=== PATIENT | female | born 1980 | race African-American/Black ===

== ENCOUNTER → 2016-09-07 | Emergency (ER) | payer OTHER ==
[~2016-09-07] VITALS: Ht 152.4 cm; Wt 78.5 kg
[~2016-09-07] MED LIST: ABILIFY10 MG ORAL; ADALAT10 MG ORAL; CIPRO HC OTIC S10 M1 OT; CITALOPRAM HBR40 M1 ORAL; FAMOTIDINE20 MG ORAL; GABAPENTIN100 MG ORAL; HYDROCODON-ACE1 EA15 ORAL; HYDROXYZIN10 MG/5 ML PO; HYDROXYZINE PA100 MG ORAL; HYDROmorphone 1mg/ml Carpuject IVP ONE; LATANOPROST2.5 ML BOTH EYES; LYRICA75 M1 ORAL; MINIPRESS1 MG PO; OMEPRAZOLE20 M2 ORAL; OMEPRAZOLE40 M1 ORAL; PRADAXA150 MG ORAL; TRAZODONE HCL150 MG ORAL; TYLENOL EXTRA500 MG ORAL; ZALEPLON5 MG ORAL; ZOFRAN4 MG ORAL
--- NOTE | 2016-09-07 02:53 | Emergency Room Report ---
History of Present Illness General Chief Complaint: Abdominal Pain Source: Patient Present Illness HPI This is a 36-year-old female with history of migraine. She presents with chief complaint abdominal pain for the last 2 days. She has vomiting but no diarrhea. Pain is crampy and sharp in nature. Localized the left lower quadrant. Also with migraine headache. Pain is 9/10. No focal deficit. No fever or chills. No urinary complaint. Allergies: Coded Allergies: ASPIRIN (Verified Allergy, Unknown, 05/21/09) PENICILLINS (Verified Allergy, Unknown, 05/21/09) Patient History Past Medical History: see triage record, old chart reviewed Past Surgical History: other Pertinent Family History: none Social History: Denies: smoking Last Menstrual Period: AUGUST 17 Now: No Immunizations: other Reviewed Nursing Documentation: PMH: Agreed, PSxH: Agreed Nursing Documentation-PMH Hx Hypertension: Yes Hx Asthma: Yes Review of Systems Eye: Denies: blurred vision, eye pain ENT: Denies: ear pain, nose congestion, throat swelling Respiratory: Denies: cough, shortness of breath Cardiovascular: Denies: chest pain, palpitations Gastrointestinal: Reports: abdominal pain, nausea, vomiting Musculoskeletal: Denies: back pain, joint pain Skin: Denies: rash Neurological: Reports: headache, Denies: numbness Endocrine: Denies: increased thirst, increased urine Hematologic/Lymphatic: Denies: easy bruising All Other Systems: negative except mentioned in HPI Physical Exam Vital Signs Date Time Temp Pulse Resp B/P Pulse Ox O2 Delivery O2 Flow Rate FiO2 09/07/16 02:27 97.9 60 18 145/90 100 Room Air vitals normal Sp02 EP Interpretation: reviewed, normal General Appearance: well appearing, no apparent distress, alert Head: normocephalic, atraumatic Eyes: bilateral eye EOMI, bilateral eye PERRL ENT: hearing grossly normal, normal pharynx Neck: full range of motion, supple, no meningismus Respiratory: chest non-tender, lungs clear, normal breath sounds Cardiovascular #1: regular rate, rhythm, no murmur Gastrointestinal: no mass, no organomegaly, no bruit, non-distended, abnormal bowel sounds - Hyperactive, tenderness - Left lower quadrant Musculoskeletal: back normal, gait/station normal, normal range of motion Psychiatric: mood/affect normal Skin: warm/dry Medical Decision Making Diagnostic Impression: Primary Impression: Abdominal pain Qualified Codes: R10.9 - Unspecified abdominal pain Additional Impression: Headache Qualified Codes: R51 - Headache ER Course Patient with abdominal pain. This turgor headache. She is better now. Asymptomatic. No evidence of acute abdomen. No evidence of obstruction. No evidence of neurological deficit deep or meningitis. We'll discharge home. Lab Results Impression labs normal CT/MRI/US Diagnostic Results CT/MRI/US Diagnostic Results : Imaging Test Ordered: CT abdomen and pelvis Impression negative per radiologist Last Vital Signs Date Time Temp Pulse Resp B/P Pulse Ox O2 Delivery O2 Flow Rate FiO2 09/07/16 02:27 97.9 60 18 145/90 100 Room Air Status: improved Disposition: HOME, SELF-CARE Condition: Stable Scripts Ondansetron (Zofran) 4 Mg Tablet 4 MG ORAL Q6H Y for Nausea & Vomiting, #10 TAB 0 Refills Prov: MAYRA MATIAS M.D. 09/07/16 Hydrocodone/Acetaminophen 5-325* (HYDROCODONE/ACETAMINOPHEN 5-325*) 1 Each Tablet 1 TAB ORAL Q6H Y for For Pain, #15 TAB 0 Refills Prov: MAYRA MATIAS M.D. 09/07/16 Patient Instructions: Abdominal Pain, Adult Additional Instructions: Followup with your DrBen in 2-3 days. Return if symptom worsen. MAYRA MATIAS M.D. Sep 07, 2016 02:53
[2016-09-07 02:56] VITALS: BP 145/90
[2016-09-07 03:17] LABS: APPEARANCE,URINE CLEAR; BASOPHILS % (AUTO) 1.3 % (0.0-2.0); EOSINOPHILS % (AUTO) 4.1 % (0.0-3.0); KETONES,URINE NEGATIVE (NEGATIVE); LEUKOCYTE ESTERASE ,URINE NEGATIVE (NEGATIVE); LYMPHOCYTES % (AUTO) 29.8 % (20.0-45.0); MEAN CORPUSCULAR HEMOGLOBIN 30.4 PG (27.0-31.0); MEAN CORPUSCULAR HGB CONC 33.8 G/DL (32.0-36.0); MEAN CORPUSCULAR VOLUME 90 FL (80-99); MEAN PLATELET VOLUME 6.9 FL (6.5-10.1); MONOCYTES % (AUTO) 7.7 % (1.0-10.0); NEUTROPHILS % (AUTO) 57.1 % (45.0-75.0); NITRITE,URINE NEGATIVE (NEGATIVE); PH,URINE 8 (4.5-8.0); PLATELET COUNT 340 K/UL (150-450); PROTEIN,URINE NEGATIVE (NEGATIVE); RED BLOOD COUNT 4.55 M/UL (4.20-5.40); RED CELL DISTRIBUTION WIDTH 11.5 % (11.6-14.8); UROBILINOGEN,URINE NORMAL MG/DL (0.0-1.0); WHITE BLOOD COUNT 8.6 K/UL (4.8-10.8)
[2016-09-07 03:22] LABS: BACTERIA,URINE FEW /HPF; SQUAMOUS EPITHELIAL CELL,UR FEW /LPF (NONE/OCC); WBC,URINE 0-2 /HPF (0 - 2)
[2016-09-07 03:33] LABS: ALANINE AMINOTRANSFERASE 12 U/L (3-33); ALBUMIN/GLOBULIN RATIO 1.4 (1.0-2.7); ANION GAP 11 (5-15); ASPARTATE AMINO TRANSFERASE 16 U/L (5-40); CALCIUM 9.7 mg/dL (8.6-10.2); CARBON DIOXIDE 28 mEQ/L (20-30); CHLORIDE 99 mEQ/L (98-107); CREATININE 0.6 mg/dL (0.5-0.9); GLOMERULAR FILTRATION RATE > 60 mL/min (>60); HEMOLYSIS 3; LIPASE 15 U/L (< 60); SODIUM 138 mEQ/L (135-145); TOTAL PROTEIN 7.5 g/dL (6.6-8.7)
[2016-09-07 04:23] VITALS: BP 134/83
--- NOTE | 2016-09-07 08:28 | Diagnostic Imaging Report ---
Indications: Abdominal pain Technique: Continuous helical CT imaging of the abdomen and pelvis was performed with automatic exposure control on a Siemens sensation [address] scanner. Axial, coronal, and sagittal images were reconstructed at 3 mm slice thickness. No oral or IV contrast was administered per question physician's orders, despite no contraindications listed. CTDI volume(s): 17 mGy Total DLP: 834 mGy-cm Findings: Comparison: None. Kidneys, ureters, urinary bladder demonstrate no intraparenchymal or intraluminal stones, collecting system or ureteral dilation, perinephric or periureteral stranding. The appendix is unremarkable. The gastrointestinal tract is normal in caliber. No extraluminal gas or fluid collections are demonstrated. Remainder of visualized abdominopelvic anatomy demonstrates no other obvious abnormality, though lack of oral and IV contrast limits evaluation. Small irregular pleural-based linear densities in both lung bases.. No focal skeletal abnormalities demonstrated. IMPRESSION: No evidence of renal or ureteral stone, hydronephrosis or hydroureter. Unremarkable appendix -- no evidence of acute appendicitis. No other evidence of acute abdominopelvic disease. Lack of oral and IV contrast limits evaluation, however, and subtle abnormalities may be missed. Repeat CT scan with full oral and IV contrast preparation recommended for more complete evaluation, as clinically indicated. This correlates with [employer] preliminary report. The CT scanner at [facility] is accredited by the [employer] [employer] and the scans are performed using protocols designed to limit radiation exposure to as low as reasonably achievable to attain images of sufficient resolution adequate for diagnostic evaluation.
== END | disposition home or self-care (01) ==
LOC: EMR 03:05
DX: R10.9 Unspecified abdominal pain (principal); R51 Headache; I10 Essential (primary) hypertension; J45.909 Unspecified asthma, uncomplicated; Z88.0 Allergy status to penicillin; Z88.6 Allergy status to analgesic agent
CPT/HCPCS: 36415; 74176; 80053; 81003; 81025; 83690; 85025; 96374; 96375; 99284; J1170; J2405

== ENCOUNTER 2016-11-23 12:56 | Emergency (ER) | payer OTHER ==
[~2016-11-23] VITALS: Ht 152.4 cm; Wt 80.7 kg
[~2016-11-23 12:56] MED LIST changes: -HYDROmorphone 1mg/ml Carpuject IVP ONE
[2016-11-23 13:09] VITALS: BP 119/67
[2016-11-23] MEDS ORDERED: Ipratropium 0.02% Inh Soln 2.5ml UD HHN ONE (13:30)
[2016-11-23] MEDS ORDERED: Metoclopramide 10mg/2ml Inj IVP ONE (13:30)
[2016-11-23] MEDS ORDERED: DiphenhydrAMINE 50mg/ml Inj IVP ONE (13:30)
[2016-11-23] MEDS ORDERED: Albuterol ud Inhalation HHN ONE (13:30)
[2016-11-23] MEDS ORDERED: Ketorolac 30mg Inj IV ONE (13:30)
[2016-11-23 13:55] LABS: APPEARANCE,URINE CLEAR; BASOPHILS % (AUTO) 1.6 % (0.0-2.0); EOSINOPHILS % (AUTO) 6.6 % (0.0-3.0); KETONES,URINE 1+ (NEGATIVE); LEUKOCYTE ESTERASE ,URINE 1+ (NEGATIVE); LYMPHOCYTES % (AUTO) 27.8 % (20.0-45.0); MEAN CORPUSCULAR HEMOGLOBIN 31.1 PG (27.0-31.0); MEAN CORPUSCULAR HGB CONC 34.3 G/DL (32.0-36.0); MEAN CORPUSCULAR VOLUME 91 FL (80-99); MEAN PLATELET VOLUME 6.8 FL (6.5-10.1); MONOCYTES % (AUTO) 6.5 % (1.0-10.0); NEUTROPHILS % (AUTO) 57.6 % (45.0-75.0); NITRITE,URINE NEGATIVE (NEGATIVE); PH,URINE 5 (4.5-8.0); PLATELET COUNT 344 K/UL (150-450); PROTEIN,URINE NEGATIVE (NEGATIVE); RED BLOOD COUNT 4.33 M/UL (4.20-5.40); RED CELL DISTRIBUTION WIDTH 11.6 % (11.6-14.8); UROBILINOGEN,URINE NORMAL MG/DL (0.0-1.0); WHITE BLOOD COUNT 8.1 K/UL (4.8-10.8)
[2016-11-23 14:07] LABS: BACTERIA,URINE FEW /HPF; SQUAMOUS EPITHELIAL CELL,UR FEW /LPF (NONE/OCC); WBC,URINE 0-2 /HPF (0 - 2)
[2016-11-23 14:41] LABS: ALANINE AMINOTRANSFERASE 20 U/L (12-78); ALBUMIN/GLOBULIN RATIO 1.1 (1.0-2.7); ANION GAP 10 mmol/L (5-15); ASPARTATE AMINO TRANSFERASE 20 U/L (15-37); CALCIUM 9.2 MG/DL (8.5-10.1); CARBON DIOXIDE 27 MMOL/L (21-32); CHLORIDE 104 MMOL/L (98-107); CREATININE 0.9 MG/DL (0.55-1.30); GLOMERULAR FILTRATION RATE > 60 mL/min (>60); POTASSIUM 3.8 MMOL/L (3.5-5.1); SODIUM 141 MMOL/L (136-145); TOTAL PROTEIN 7.2 G/DL (6.4-8.2)
[2016-11-23] MEDS ORDERED: IMITREX50 MG ORAL (14:45)
[2016-11-23 15:10] VITALS: BP 112/67
--- NOTE | 2016-11-24 14:12 | Emergency Room Report ---
History of Present Illness General Chief Complaint: General Complaint Source: Patient, Medical Record Present Illness HPI 36-year-old female presents to ED for evaluation. Patient states yesterday she developed a headache which is getting progressively worse. Across the forehead , throbbing, 8/10, nonradiating. Patient has history of migraines. Denies photophobia or blurry vision. Denies neck stiffness fevers or chills. Patient admits to nausea and vomiting. Denies chest pain. Patient has history of asthma and states she is wheezing. Denies cough. No other aggravating relieving factors. Denies any other associated symptoms Allergies: Coded Allergies: ASPIRIN (Verified Allergy, Unknown, 05/21/09) PENICILLINS (Verified Allergy, Unknown, 05/21/09) Patient History Past Medical History: HTN, migraines Past Surgical History: none Pertinent Family History: none Social History: Denies: smoking, alcohol use, drug use Last Menstrual Period: 11/21/16 Now: No Immunizations: UTD Reviewed Nursing Documentation: PMH: Agreed, PSxH: Agreed Nursing Documentation-PMH Past Medical History: No History, Except For Hx Hypertension: Yes Hx Asthma: Yes Review of Systems All Other Systems: negative except mentioned in HPI Physical Exam Vital Signs Date Time Temp Pulse Resp B/P (MAP) Pulse Ox O2 Delivery O2 Flow Rate FiO2 11/23/16 12:59 97.9 90 18 138/90 97 Room Air 11/23/16 13:35 21 Sp02 EP Interpretation: reviewed, normal General Appearance: no apparent distress, alert, GCS 15, non-toxic Head: normocephalic Eyes: bilateral eye normal inspection, bilateral eye PERRL, bilateral eye EOMI ENT: hearing grossly normal, normal pharynx, no angioedema, normal voice, TMs + canals normal Neck: full range of motion, supple, no meningismus Respiratory: wheezing Cardiovascular #1: regular rate, rhythm, no edema Gastrointestinal: normal inspection Rectal: deferred Genitourinary: no CVA tenderness Musculoskeletal: normal inspection Neurologic: alert, oriented x3, responsive, motor strength/tone normal, sensory intact, speech normal Psychiatric: judgement/insight normal, memory normal, mood/affect normal, no suicidal/homicidal ideation Skin: normal inspection Lymphatic: normal inspection Medical Decision Making Diagnostic Impression: Primary Impression: Migraine Qualified Codes: G43.009 - Migraine without aura, not intractable, without status migrainosus Additional Impression: Asthma exacerbation Qualified Codes: J45.901 - Unspecified asthma with (acute) exacerbation ER Course Hospital Course 36-year-old female presents to ED complaining of headaches, wheezing. h/o migraines Differential diagnoses include: tension headache, migraine, dehydration, asthma exacerbation Clinical course Patient placed on stretcher. After initial history and physical I ordered labs , IV fluids, Reglan, Toradol and Benadryl. nebulizer treatment ordered Labs reviewed- electrolytes okay, no leukocytosis, hemoglobin/hematocrit stable. UA negative Upon reassessment patient states pain has improved. wheezing resolved. Patient feels better wishes to go home. Given the lack of fever, nuchal rigidity or neurological findings my suspicion for intracranial pathology is low patient be safely discharged to home. i. I feel this is a highly complex case requiring extensive working including EKG/Rhythm strip, Xray/CT/US, Blood/urine lab work, repeat exams while in ED, and administration of strong opiates/narcotics for pain control, admission to hospital or close patient follow up. Diagnosis - migraine, asthma exacerbation stable and discharged to home with Rx Imitrex. f/up with PMD. return to ED if symptoms recur/worsen. Labs Test 11/23/16 13:36 White Blood Count 8.1 K/UL (4.8-10.8) Red Blood Count 4.33 M/UL (4.20-5.40) Hemoglobin 13.5 G/DL (12.0-16.0) Hematocrit 39.3 % (37.0-47.0) Mean Corpuscular Volume 91 FL (80-99) Mean Corpuscular Hemoglobin 31.1 PG (27.0-31.0) Mean Corpuscular Hemoglobin Concent 34.3 G/DL (32.0-36.0) Red Cell Distribution Width 11.6 % (11.6-14.8) Platelet Count 344 K/UL (150-450) Mean Platelet Volume 6.8 FL (6.5-10.1) Neutrophils (%) (Auto) 57.6 % (45.0-75.0) Lymphocytes (%) (Auto) 27.8 % (20.0-45.0) Monocytes (%) (Auto) 6.5 % (1.0-10.0) Eosinophils (%) (Auto) 6.6 % (0.0-3.0) Basophils (%) (Auto) 1.6 % (0.0-2.0) Urine Color Yellow Urine Appearance Clear Urine pH 5 (4.5-8.0) Urine Specific [place] 1.020 (1.005-1.035) Urine Protein Negative (NEGATIVE) Urine Glucose (UA) Negative (NEGATIVE) Urine Ketones 1+ (NEGATIVE) Urine Occult Blood 2+ (NEGATIVE) Urine Nitrite Negative (NEGATIVE) Urine Bilirubin Negative (NEGATIVE) Urine Urobilinogen Normal MG/DL (0.0-1.0) Urine Leukocyte Esterase 1+ (NEGATIVE) Urine RBC 2-4 /HPF (0 - 2) Urine WBC 0-2 /HPF (0 - 2) Urine Squamous Epithelial Cells Few /LPF (NONE/OCC) Urine Bacteria Few /HPF (NONE) Sodium Level 141 MMOL/L (136-145) Potassium Level 3.8 MMOL/L (3.5-5.1) Chloride Level 104 MMOL/L (98-107) Carbon Dioxide Level 27 MMOL/L (21-32) Anion Gap 10 mmol/L (5-15) Blood Urea Nitrogen 12 mg/dL (7-18) Creatinine 0.9 MG/DL (0.55-1.30) Estimat Glomerular Filtration Rate > 60 mL/min (>60) Glucose Level 77 MG/DL (74-106) Calcium Level 9.2 MG/DL (8.5-10.1) Total Bilirubin 0.3 MG/DL (0.2-1.0) Aspartate Amino Transf (AST/SGOT) 20 U/L (15-37) Alanine Aminotransferase (ALT/SGPT) 20 U/L (12-78) Alkaline Phosphatase 57 U/L (46-116) Total Protein 7.2 G/DL (6.4-8.2) Albumin 3.8 G/DL (3.4-5.0) Globulin 3.4 g/dL Albumin/Globulin Ratio 1.1 (1.0-2.7) Last Vital Signs Date Time Temp Pulse Resp B/P (MAP) Pulse Ox O2 Delivery O2 Flow Rate FiO2 11/23/16 15:10 98.4 70 21 112/67 100 Room Air 21 Status: improved Disposition: HOME, SELF-CARE Condition: Stable Scripts Sumatriptan Succinate* (IMITREX*) 50 Mg Tablet 50 MG ORAL DAILY PRN MIGRAINE, #20 TAB Prov: GURMEET BUNN M.D. 11/23/16 Referrals: [facility],REFERCHRISTOPHER (PCP) Patient Instructions: Migraine Headache, [id number] GURMEET BUNN M.D. Nov 24, 2016 14:12
[2016-12-06] MEDS ORDERED: NORCO 5-325 TA1 EACH ORAL (23:29)
[2016-12-06] MEDS ORDERED: MAALOX MAXIMUM355 M1 PO (23:29)
[2016-12-06] MEDS ORDERED: ZOFRAN ODT4 MG ORAL (23:29)
[2016-12-06] MEDS ORDERED: ALBUTEROL SULF8.5 GM INH (23:29)
== END 2016-11-23 15:10 | disposition home or self-care (01) ==
LOC: EMR 13:34
DX: G43.909 Migraine, unspecified, not intractable, without status migrainosus (principal); J45.901 Unspecified asthma with (acute) exacerbation; I10 Essential (primary) hypertension; Z88.0 Allergy status to penicillin; Z88.6 Allergy status to analgesic agent
CPT/HCPCS: 36415; 80053; 81003; 85025; 94640; 94664; 96361; 96374; 96375; 99284; J1200; J1885; J2765

== ENCOUNTER → 2016-12-06 | Emergency (ER) | payer OTHER ==
[~2016-12-06] VITALS: Ht 152.4 cm; Wt 74.8 kg
[~2016-12-06] MED LIST changes: +ALBUTEROL SULF8.5 GM INH; +Albuterol ud Inhalation HHN ONE; +IMITREX50 MG ORAL; +Ipratropium 0.02% Inh Soln 2.5ml UD HHN ONE; +MAALOX MAXIMUM355 M1 PO; +Morphine Sulfate 4mg/ml Inj IVP ONE; +NORCO 5-325 TA1 EACH ORAL; +ZOFRAN ODT4 MG ORAL
[2016-12-06 20:29] VITALS: BP 122/76
--- NOTE | 2016-12-06 20:50 | Emergency Room Report ---
History of Present Illness General Chief Complaint: Chest Pain Source: Patient Present Illness HPI The patient presents with 3 days of cough, chest pain, vomiting. She's been barely able to keep down water after taking Zofran earlier today. The pain is been 9/10 and pleuritic. Is not radiating. It's in her left chest. With Tylenol this decreased to 5/10. She's been vomiting up green mucus and also stomach acid. She does take Pepcid. She also complains of some green diarrhea. Her last period was November 21 and normal for her. There's no dysuria. She denies any travel or unusual contacts or food. She's had some wheezing with the cough. She's not used an inhaler recently. She also feels a migraine at this time. She was unable to work today. The patient is on Pradaxa for blood clots. 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 She denies hemoptysis or bleeding problems. She has some positional numbness in her L leg - worse when she lays down. No other unilateral weakness. No fevers, chills, rashes, trauma, joint pain. 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 Last Menstrual Period: nov 21 Now: No : 3 Reviewed Nursing Documentation: PMH: Agreed, PSxH: Agreed Nursing Documentation-PMH Hx Hypertension: Yes Hx Asthma: Yes Review of Systems All Other Systems: negative except mentioned in HPI Physical Exam Vital Signs Date Time Temp Pulse Resp B/P (MAP) Pulse Ox O2 Delivery O2 Flow Rate FiO2 12/06/17 20:21 98.2 71 18 122/76 98 Room Air Sp02 EP Interpretation: reviewed, normal General Appearance: well appearing, no apparent distress, GCS 15 Head: normocephalic Eyes: bilateral eye normal inspection, bilateral eye PERRL, bilateral eye EOMI ENT: moist mucus membranes Neck: supple Respiratory: chest non-tender, lungs clear, normal breath sounds, other - Slight posttussive wheezing Cardiovascular #1: regular rate, rhythm Cardiovascular #2: 2+ radial (R) Gastrointestinal: normal inspection, normal bowel sounds, non tender, no mass, non-distended Musculoskeletal: back normal, gait/station normal, normal range of motion Neurologic: alert, oriented x3, home visitor home base head start III-XII nml as tested, motor strength/tone normal, DTRs symmetric, sensory intact, cerebellar normal, normal gait, speech normal Psychiatric: mood/affect normal Skin: normal inspection, warm/dry Medical Decision Making Diagnostic Impression: Primary Impression: Chest pain Qualified Codes: R07.9 - Chest pain, unspecified Additional Impressions: Bronchospasm Nausea & vomiting Qualified Codes: R11.2 - Nausea with vomiting, unspecified Headache Qualified Codes: R51 - Headache ER Course The patient presents with cough, vomiting chest pain and headache. Differential includes viral, bronchitis, asthma exacerbation, gastroenteritis amongst others. Based on her vital signs pulmonary embolus is less likely. Evaluation will be with EKG, chest x-ray and labs. She'll be treated with IV hydration, Zofran, morphine and and albuterol. Also she will receive a dose of Pepcid. Slight higher risk due to Pradaxa and prior history, though no other red flag sy or signs. EKG without injury. CXR normal. Labs unremarkable. Improved with breathing treatment and medications. Patient stable for outpatient observation and treatment. Labs Test 12/06/16 21:05 White Blood Count 10.6 K/UL (4.8-10.8) Red Blood Count 4.43 M/UL (4.20-5.40) Hemoglobin 13.1 G/DL (12.0-16.0) Hematocrit 40.3 % (37.0-47.0) Mean Corpuscular Volume 91 FL (80-99) Mean Corpuscular Hemoglobin 29.6 PG (27.0-31.0) Mean Corpuscular Hemoglobin Concent 32.6 G/DL (32.0-36.0) Red Cell Distribution Width 11.8 % (11.6-14.8) Platelet Count 382 K/UL (150-450) Mean Platelet Volume 6.7 FL (6.5-10.1) Neutrophils (%) (Auto) 59.3 % (45.0-75.0) Lymphocytes (%) (Auto) 28.2 % (20.0-45.0) Monocytes (%) (Auto) 7.1 % (1.0-10.0) Eosinophils (%) (Auto) 4.3 % (0.0-3.0) Basophils (%) (Auto) 1.1 % (0.0-2.0) Prothrombin Time 10.1 SEC (9.30-11.50) Prothromb Time International Ratio 1.0 (0.9-1.1) Activated Partial Thromboplast Time 32 SEC (23-33) Urine Color Pale yellow Urine Appearance Clear Urine pH 7 (4.5-8.0) Urine Specific [place] 1.010 (1.005-1.035) Urine Protein Negative (NEGATIVE) Urine Glucose (UA) Negative (NEGATIVE) Urine Ketones Negative (NEGATIVE) Urine Occult Blood Negative (NEGATIVE) Urine Nitrite Negative (NEGATIVE) Urine Bilirubin Negative (NEGATIVE) Urine Urobilinogen Normal MG/DL (0.0-1.0) Urine Leukocyte Esterase 1+ (NEGATIVE) Urine RBC 0-2 /HPF (0 - 2) Urine WBC 2-4 /HPF (0 - 2) Urine Squamous Epithelial Cells Few /LPF (NONE/OCC) Urine Bacteria Few /HPF (NONE) Urine HCG, Qualitative Negative Sodium Level 138 MMOL/L (136-145) Potassium Level 4.0 MMOL/L (3.5-5.1) Chloride Level 103 MMOL/L (98-107) Carbon Dioxide Level 28 MMOL/L (21-32) Anion Gap 7 mmol/L (5-15) Blood Urea Nitrogen 11 mg/dL (7-18) Creatinine 0.8 MG/DL (0.55-1.30) Estimat Glomerular Filtration Rate > 60 mL/min (>60) Glucose Level 89 MG/DL (74-106) Lactic Acid Level 1.20 mmol/L (0.66-2.22) Calcium Level 9.4 MG/DL (8.5-10.1) Total Bilirubin 0.1 MG/DL (0.2-1.0) Aspartate Amino Transf (AST/SGOT) 10 U/L (15-37) Alanine Aminotransferase (ALT/SGPT) 18 U/L (12-78) Alkaline Phosphatase 56 U/L (46-116) Total Creatine Kinase 70 U/L (26-308) Pro-B-Type Natriuretic Peptide 12 pg/mL (0-125) Total Protein 7.5 G/DL (6.4-8.2) Albumin 3.7 G/DL (3.4-5.0) Globulin 3.8 g/dL Albumin/Globulin Ratio 1.0 (1.0-2.7) EKG Diagnostic Results Rate: normal Rhythm: NSR ST Segments: no acute changes Rhythm Strip Diag. Results Rhythm: NSR, no PVC's, no ectopy Chest X-Ray Diagnostic Results Chest X-Ray Diagnostic Results : Chest X-Ray Ordered: Yes # of Views/Limited/Complete: 1 View Indication: Chest Pain EP Interpretation: Yes Interpretation: no consolidation, no effusion, no pneumothorax, no acute cardiopulmonary disease Impression: No acute disease Electronically Signed by: Ramon Obregon MD Last Vital Signs Date Time Temp Pulse Resp B/P (MAP) Pulse Ox O2 Delivery O2 Flow Rate FiO2 12/06/16 22:09 87 18 96 Room Air 12/06/16 20:29 98.2 122/76 Status: improved Disposition: HOME, SELF-CARE Condition: Improved Scripts Albuterol Sulfate* (ALBUTEROL SULFATE MDI*) 8.5 Gm Hfa.aer.ad 2 PUFF INH Q6H Y for wheezing, #1 EA 0 Refills Prov: Ramon Obregon M.D. 12/06/16 Hydrocodone Bit/Acetaminophen 5-325* (NORCO 5-325*) 1 Each Tablet 1 TAB ORAL Q6H Y for For Pain, #16 TAB 0 Refills Prov: Ramno Obregon M.D. 12/06/16 Ondansetron Odt* (ZOFRAN ODT*) 4 Mg Tab.rapdis 4 MG ORAL Q8H Y for Nausea & Vomiting, #10 TAB 1 Refill Prov: Ramon Obregon M.D. 12/06/16 Mag Hydrox/Al Hydrox/Simeth (MAALOX MAXIMUM STRENGTH SUSP) 355 Ml Oral.susp 20 ML PO Q6HR Y for acid, #240 ML 1 Refill Prov: Ramon Obregon M.D. 12/06/16 Referrals: [facility],REFERCHRISTOPHER (PCP) Ramon Obregon M.D. Dec 06, 2016 20:50
[2016-12-06 21:36] LABS: BASOPHILS % (AUTO) 1.1 % (0.0-2.0); EOSINOPHILS % (AUTO) 4.3 % (0.0-3.0); HEMATOCRIT 40.3 % (37.0-47.0); HEMOGLOBIN 13.1 G/DL (12.0-16.0); LYMPHOCYTES % (AUTO) 28.2 % (20.0-45.0); MEAN CORPUSCULAR VOLUME 91 FL (80-99); MONOCYTES % (AUTO) 7.1 % (1.0-10.0); NEUTROPHILS % (AUTO) 59.3 % (45.0-75.0); PLATELET COUNT 382 K/UL (150-450); RED BLOOD COUNT 4.43 M/UL (4.20-5.40); RED CELL DISTRIBUTION WIDTH 11.8 % (11.6-14.8); WHITE BLOOD COUNT 10.6 K/UL (4.8-10.8)
[2016-12-06 21:39] LABS: APPEARANCE,URINE CLEAR; BILIRUBIN, URINE NEGATIVE (NEGATIVE); COLOR,URINE PALE YELLOW; GLUCOSE, URINE (UA) NEGATIVE (NEGATIVE); KETONES,URINE NEGATIVE (NEGATIVE); LEUKOCYTE ESTERASE ,URINE 1+ (NEGATIVE); NITRITE,URINE NEGATIVE (NEGATIVE); PH,URINE 7 (4.5-8.0); PROTEIN,URINE NEGATIVE (NEGATIVE); UROBILINOGEN,URINE NORMAL MG/DL (0.0-1.0)
[2016-12-06 22:09] LABS: ALANINE AMINOTRANSFERASE 18 U/L (12-78); ALBUMIN 3.7 G/DL (3.4-5.0); ALKALINE PHOSPHATASE 56 U/L (46-116); ANION GAP 7 mmol/L (5-15); ASPARTATE AMINO TRANSFERASE 10 U/L (15-37); BILIRUBIN,TOTAL 0.1 MG/DL (0.2-1.0); BLOOD UREA NITROGEN 11 mg/dL (7-18); CALCIUM 9.4 MG/DL (8.5-10.1); CARBON DIOXIDE 28 MMOL/L (21-32); CHLORIDE 103 MMOL/L (98-107); CREATINE KINASE 70 U/L (26-308); CREATININE 0.8 MG/DL (0.55-1.30); SODIUM 138 MMOL/L (136-145)
--- NOTE | 2016-12-07 11:10 | Diagnostic Imaging Report ---
Indication: Cough Comparison: 05/20/09 A single view chest radiograph was obtained. Findings: Cardiomediastinal appearance is within normal limits for age. Pulmonary vascularity is appropriate. The diaphragmatic contour is smooth and costophrenic angles are sharp. No pleural effusions are identified. The bones are unremarkable. Impression: No acute findings
--- NOTE | 2016-12-07 15:35 | Cardiology Report ---
APPROVED REPORT EKG Measurement Heart [id number] [place] [id number] Normal sinus rhythm with sinus arrhythmia Normal ECG
--- NOTE | 2016-12-07 15:35 | Cardiology Report ---
APPROVED REPORT EKG Measurement Heart [id number] [place] [id number] Normal sinus rhythm with sinus arrhythmia Normal ECG
--- NOTE | 2016-12-07 15:35 | Cardiology Report ---
APPROVED REPORT EKG Measurement Heart [id number] [place] [id number] Normal sinus rhythm with sinus arrhythmia Normal ECG
== END | disposition home or self-care (01) ==
LOC: EMR 20:43
DX: R07.9 Chest pain, unspecified (principal); J98.01 Acute bronchospasm; I10 Essential (primary) hypertension; R11.2 Nausea with vomiting, unspecified; J45.909 Unspecified asthma, uncomplicated; Z88.0 Allergy status to penicillin; Z88.6 Allergy status to analgesic agent
CPT/HCPCS: 36415; 71010; 80053; 81003; 81025; 82550; 83605; 83880; 85025; 85610; 85730; 93005; 94640; 94664; 96361; 96374; 96375; 99284; J2270; J2405; S0028

== ENCOUNTER 2017-04-14 23:19 | Emergency (ER) | payer OTHER ==
[~2017-04-14] VITALS: Ht 152.4 cm; Wt 77.1 kg
[~2017-04-14 23:19] MED LIST changes: -Albuterol ud Inhalation HHN ONE; -Ipratropium 0.02% Inh Soln 2.5ml UD HHN ONE; -Morphine Sulfate 4mg/ml Inj IVP ONE
[2017-04-14] MEDS ORDERED: PHENAZOPYRIDIN100 MG ORAL (23:40)
[2017-04-14] MEDS ORDERED: NITROFURANTOIN100 M2 ORAL (23:40)
--- NOTE | 2017-04-14 23:40 | Emergency Room Report ---
History of Present Illness General Chief Complaint: Female Urogenital Problems Source: Patient Present Illness HPI This is a 37-year-old female with a history of lupus. She presents with chief complaint of dysuria, frequency and now hematuria. Onset for the last 2-3 days. Hematuria today. No fever chills. No nausea no vomiting. No back pain. History of UTI in the past. Allergies: Coded Allergies: ASPIRIN (Verified Allergy, Unknown, 05/21/09) PENICILLINS (Verified Allergy, Unknown, 05/21/09) Patient History Past Medical History: see triage record, old chart reviewed Past Surgical History: other Pertinent Family History: none Last Menstrual Period: april 09 Now: No : 3 Immunizations: other Reviewed Nursing Documentation: PMH: Agreed, PSxH: Agreed Nursing Documentation-PMH Hx Hypertension: Yes Hx Asthma: Yes Review of Systems Eye: Denies: eye pain, blurred vision ENT: Denies: ear pain, nose congestion, throat swelling Respiratory: Denies: cough, shortness of breath Cardiovascular: Denies: chest pain, palpitations Gastrointestinal: Denies: abdominal pain, diarrhea, nausea, vomiting Genitourinary: Reports: dysuria, frequency, hematuria Musculoskeletal: Denies: back pain, joint pain Skin: Denies: rash Neurological: Denies: headache, numbness Endocrine: Denies: increased thirst, increased urine Hematologic/Lymphatic: Denies: easy bruising All Other Systems: negative except mentioned in HPI Physical Exam Vital Signs Date Time Temp Pulse Resp B/P (MAP) Pulse Ox O2 Delivery O2 Flow Rate FiO2 04/14/17 23:22 99.3 67 18 129/83 98 Room Air 99.3 vitals normal Sp02 EP Interpretation: reviewed, normal General Appearance: well appearing, no apparent distress, alert Head: normocephalic, atraumatic Eyes: bilateral eye PERRL, bilateral eye EOMI ENT: hearing grossly normal, normal pharynx Neck: full range of motion, supple, no meningismus Respiratory: chest non-tender, lungs clear, normal breath sounds Cardiovascular #1: regular rate, rhythm, no murmur Gastrointestinal: normal bowel sounds, non tender, no mass, no organomegaly, no bruit, non-distended Musculoskeletal: back normal, gait/station normal, normal range of motion Psychiatric: mood/affect normal Skin: warm/dry Medical Decision Making Diagnostic Impression: Primary Impression: UTI (urinary tract infection) Qualified Codes: N30.01 - Acute cystitis with hematuria ER Course Patient with uncomplicated UTI. She said that she has no swelling with penicillin so I avoid Keflex. No evidence of pyelonephritis or sepsis. We'll discharge home. Last Vital Signs Date Time Temp Pulse Resp B/P (MAP) Pulse Ox O2 Delivery O2 Flow Rate FiO2 04/14/17 23:22 99.3 67 18 129/83 98 Room Air 99.3 Status: improved Disposition: HOME, SELF-CARE Condition: Stable Scripts Phenazopyridine Hcl* (PYRIDIUM*) 100 Mg Tablet 100 MG ORAL THREE TIMES A DAY, #6 TAB Prov: MAYRA MATIAS M.D. 04/14/17 Nitrofurantoin Monohyd/M-Cryst* (MACROBID 100 MG*) 100 Mg Capsule 100 MG ORAL EVERY 12 HOURS, #14 CAP Prov: MAYRA MATIAS M.D. 04/14/17 Patient Instructions: Urinary Tract Infection Additional Instructions: Follow-up with your doctor in 2-3 days for recheck. Return if worse. MAYRA MATIAS M.D. Apr 14, 2017 23:40
[2017-04-14] MEDS ORDERED: Phenazopyridine 200mg tab ORAL ONE (23:45)
[2017-04-14 23:50] VITALS: BP_SYST 0; BP_SYST 129; BP_DIAS 0; BP_DIAS 83
== END 2017-04-14 23:45 | disposition home or self-care (01) ==
LOC: EMR 23:43
DX: N39.0 Urinary tract infection, site not specified (principal); I10 Essential (primary) hypertension; J45.909 Unspecified asthma, uncomplicated; Z88.0 Allergy status to penicillin; Z88.6 Allergy status to analgesic agent
CPT/HCPCS: 87086; 99283

== ENCOUNTER 2017-05-25 22:57 | Emergency (ER) | payer OTHER ==
[~2017-05-25] VITALS: Ht 152.4 cm; Wt 79.4 kg
[~2017-05-25 22:57] MED LIST changes: +NITROFURANTOIN100 M2 ORAL; +PHENAZOPYRIDIN100 MG ORAL
[2017-05-25] MEDS ORDERED: PRADAXA150 MG ORAL (23:24)
[2017-05-25 23:30] VITALS: BP 130/90
[2017-05-25] MEDS ORDERED: HYDROmorphone 1mg/ml Carpuject IM ONE (23:45)
[2017-05-26] MEDS ORDERED: SONATA10 MG PO (00:14)
[2017-05-26] MEDS ORDERED: IMITREX25 MG PO (00:14)
--- NOTE | 2017-05-26 00:14 | Emergency Room Report ---
History of Present Illness General Chief Complaint: Headache Source: Patient Present Illness HPI Is a 37-year-old female with history of migraine lupus. She presents with chief complaint of migraine headache for last 2 days. His on the right side. Throbbing in nature. Problem with lights and sounds. Similar to previous presentation. Her Imitrex is not helping and she is out. She thinks with treating this is she's also out of her sleep medicine the last couple weeks. Has nausea but no vomiting. Pain is 9 out of 10. Allergies: Coded Allergies: ASPIRIN (Verified Allergy, Unknown, 05/21/09) PENICILLINS (Verified Allergy, Unknown, 05/21/09) Patient History Past Medical History: see triage record, old chart reviewed Past Surgical History: other Pertinent Family History: none Social History: Denies: smoking Last Menstrual Period: 05/20/17 Now: No : 2 Para: 1 Immunizations: other Reviewed Nursing Documentation: PMH: Agreed; PSxH: Agreed Nursing Documentation-PMH Hx Asthma: Yes Review of Systems Eye: Denies: eye pain, blurred vision ENT: Denies: ear pain, nose congestion, throat swelling Respiratory: Denies: cough, shortness of breath Cardiovascular: Denies: chest pain, palpitations Gastrointestinal: Denies: abdominal pain, diarrhea, nausea, vomiting Musculoskeletal: Denies: back pain, joint pain Skin: Denies: rash Neurological: Reports: headache; Denies: numbness Endocrine: Denies: increased thirst, increased urine Hematologic/Lymphatic: Denies: easy bruising All Other Systems: negative except mentioned in HPI Physical Exam Vital Signs Date Time Temp Pulse Resp B/P (MAP) Pulse Ox O2 Delivery O2 Flow Rate FiO2 05/25/17 23:18 98.2 64 14 130/90 98 Room Air 98.2 vitals normal Sp02 EP Interpretation: reviewed, normal General Appearance: well appearing, no apparent distress, alert Head: normocephalic, atraumatic Eyes: bilateral eye PERRL, bilateral eye EOMI ENT: hearing grossly normal, normal pharynx Neck: full range of motion, supple, no meningismus Respiratory: chest non-tender, lungs clear, normal breath sounds Cardiovascular #1: regular rate, rhythm, no murmur Gastrointestinal: normal bowel sounds, non tender, no mass, no organomegaly, no bruit, non-distended Musculoskeletal: back normal, gait/station normal, normal range of motion Psychiatric: mood/affect normal Skin: warm/dry Medical Decision Making Diagnostic Impression: Primary Impression: Migraine Qualified Codes: G43.009 - Migraine without aura, not intractable, without status migrainosus ER Course Patient with migraine. No evidence of bleed or meningitis or tumor. This is typical for her. Better now. We'll discharge home. Last Vital Signs Date Time Temp Pulse Resp B/P (MAP) Pulse Ox O2 Delivery O2 Flow Rate FiO2 05/25/17 23:46 98.2 05/25/17 23:18 64 14 130/90 98 Room Air Status: improved Disposition: HOME, SELF-CARE Condition: Stable Scripts Zaleplon (SONATA) 10 Mg Capsule 10 MG PO QHS, #30 CAP Prov: MAYRA MATIAS M.D. 05/26/17 Sumatriptan Succinate (IMITREX) 25 Mg Tablet 25 MG PO BID, #60 TAB Prov: MAYRA MATIAS M.D. 05/26/17 Referrals: [facility],REFERRING (PCP) Patient Instructions: Migraine Headache Additional Instructions: Follow-up with your doctor in 7 days. Return of worse. MAYRA MTAIAS M.D. May 26, 2017 00:14
[2017-05-26 00:20] VITALS: BP 130/90
== END 2017-05-26 00:20 | disposition home or self-care (01) ==
LOC: EMR 23:25
DX: G43.909 Migraine, unspecified, not intractable, without status migrainosus (principal); J45.909 Unspecified asthma, uncomplicated; Z88.6 Allergy status to analgesic agent; Z88.0 Allergy status to penicillin
CPT/HCPCS: 96372; 99284; J1170; J2550

== ENCOUNTER 2017-06-26 22:54 | Emergency (ER) | payer OTHER ==
[~2017-06-26] VITALS: Ht 152.4 cm; Wt 80.7 kg
[~2017-06-26 22:54] MED LIST changes: +IMITREX25 MG PO; +SONATA10 MG PO
[2017-06-26 23:07] VITALS: BP 120/72
[2017-06-26 23:32] LABS: BILIRUBIN, URINE NEGATIVE (NEGATIVE); COLOR,URINE PALE YELLOW; GLUCOSE, URINE (UA) NEGATIVE (NEGATIVE); KETONES,URINE NEGATIVE (NEGATIVE); NITRITE,URINE NEGATIVE (NEGATIVE); PH,URINE 5 (4.5-8.0); PROTEIN,URINE NEGATIVE (NEGATIVE); UROBILINOGEN,URINE NORMAL MG/DL (0.0-1.0)
[2017-06-26 23:33] LABS: APPEARANCE,URINE CLEAR; LEUKOCYTE ESTERASE ,URINE 2+ (NEGATIVE)
[2017-06-26] MEDS ORDERED: CEPHALEXIN500 MG ORAL (23:33)
--- NOTE | 2017-06-26 23:34 | Emergency Room Report ---
History of Present Illness General Chief Complaint: Female Urogenital Problems Source: Patient, Medical Record Present Illness HPI Is a 37-year-old female with a history of lupus. She has a history of frequent urinary tract infection. She said that since she been back on the buccal no this is more frequent. She presents with chief point of dysuria and frequency for last to 3 days. No back pain. No nausea no vomiting. No fever chills. Similar symptom in the past. Allergies: Coded Allergies: ASPIRIN (Verified Allergy, Unknown, 05/21/09) MORPHINE (Verified Allergy, Unknown, 06/26/17) PENICILLINS (Verified Allergy, Unknown, 05/21/09) Patient History Past Medical History: see triage record, old chart reviewed, asthma Past Surgical History: other Pertinent Family History: none Social History: Denies: smoking Last Menstrual Period: 06/01/17 Now: No Immunizations: other Reviewed Nursing Documentation: PMH: Agreed; PSxH: Agreed Nursing Documentation-PMH Past Medical History: No History, Except For Hx Asthma: Yes Review of Systems Eye: Denies: eye pain, blurred vision ENT: Denies: ear pain, nose congestion, throat swelling Respiratory: Denies: cough, shortness of breath Cardiovascular: Denies: chest pain, palpitations Gastrointestinal: Denies: abdominal pain, diarrhea, nausea, vomiting Genitourinary: Reports: frequency, urgency Musculoskeletal: Denies: back pain, joint pain Skin: Denies: rash Neurological: Denies: headache, numbness Endocrine: Denies: increased thirst, increased urine Hematologic/Lymphatic: Denies: easy bruising All Other Systems: negative except mentioned in HPI Physical Exam Vital Signs Date Time Temp Pulse Resp B/P (MAP) Pulse Ox O2 Delivery O2 Flow Rate FiO2 06/26/17 22:59 98.5 75 16 120/72 97 Room Air 98.4 vitals normal Sp02 EP Interpretation: reviewed, normal General Appearance: well appearing, no apparent distress, alert Head: normocephalic, atraumatic Eyes: bilateral eye PERRL, bilateral eye EOMI ENT: hearing grossly normal, normal pharynx Neck: full range of motion, supple, no meningismus Respiratory: chest non-tender, lungs clear, normal breath sounds Cardiovascular #1: regular rate, rhythm, no murmur Gastrointestinal: normal bowel sounds, non tender, no mass, no organomegaly, no bruit, non-distended Musculoskeletal: back normal, gait/station normal, normal range of motion Psychiatric: mood/affect normal Skin: warm/dry Medical Decision Making Diagnostic Impression: Primary Impression: UTI (urinary tract infection) Qualified Codes: N30.00 - Acute cystitis without hematuria ER Course Patient presents with UTI symptoms. No evidence of pyelonephritis or sepsis. We'll discharge home. She said Keflex helped her last time. She has no response to Macrobid. Last Vital Signs Date Time Temp Pulse Resp B/P (MAP) Pulse Ox O2 Delivery O2 Flow Rate FiO2 06/26/17 23:07 98.4 75 16 120/72 97 Room Air 98.4 Status: unchanged Disposition: HOME, SELF-CARE Condition: Stable Scripts Cephalexin* (KEFLEX*) 500 Mg Capsule 500 MG ORAL TID, #21 CAP Prov: MAYRA MATIAS M.D. 06/26/17 Referrals: [facility],REFERRING (PCP) Patient Instructions: Urinary Tract Infection Additional Instructions: Follow-up with your doctor in 7 days. Return if symptom worsen. MAYRA MATIAS M.D. June 26, 2017 23:34
[2017-06-26 23:37] VITALS: BP 0/0
== END 2017-06-26 23:37 | disposition home or self-care (01) ==
LOC: EMR 23:11
DX: N39.0 Urinary tract infection, site not specified (principal); M32.9 Systemic lupus erythematosus, unspecified; J45.909 Unspecified asthma, uncomplicated; Z88.0 Allergy status to penicillin; Z88.6 Allergy status to analgesic agent; Z88.5 Allergy status to narcotic agent
CPT/HCPCS: 81003; 81025; 87086; 99283

== ENCOUNTER 2017-07-23 14:16 | Emergency (ER) | payer OTHER ==
[~2017-07-23] VITALS: Ht 152.4 cm; Wt 83.5 kg
[~2017-07-23 14:16] MED LIST changes: +CEPHALEXIN500 MG ORAL
--- NOTE | 2017-07-23 15:30 | Emergency Room Report ---
History of Present Illness General Chief Complaint: Complications Source: Patient Present Illness HPI 37 y.o. F , A1, 11 wks , here c/o continuous spotting since this morning and mild abd pain upon palpation. denies nausea/vomiting, dysuira, frequency. denies hematuira, clotting. has a hx of one spontaneous 9 yrs ago. pt stopped taking prednisone for her lupus prior to pregnnacy and currently on Aspirin dialy. denies fever/chills, syncope, vision changes, palpitation, sob, CP. Allergies: Coded Allergies: ASPIRIN (Verified Allergy, Unknown, 05/21/09) MORPHINE (Verified Allergy, Unknown, 06/26/17) PENICILLINS (Verified Allergy, Unknown, 05/21/09) Patient History Past Medical History: see triage record Past Surgical History: none Last Menstrual Period: 06/09/17 Now: Yes - 11 WEEKS : 3 Para: 1 Immunizations: UTD Reviewed Nursing Documentation: PMH: Agreed; PSxH: Agreed Nursing Documentation-PMH Past Medical History: No History, Except For Hx Asthma: Yes Review of Systems All Other Systems: negative except mentioned in HPI Physical Exam Vital Signs Date Time Temp Pulse Resp B/P (MAP) Pulse Ox O2 Delivery O2 Flow Rate FiO2 07/23/17 14:52 98.3 73 16 120/77 97 Room Air 98.2 Sp02 EP Interpretation: reviewed General Appearance: normal inspection, well appearing, no apparent distress Eyes: bilateral eye normal inspection, bilateral eye PERRL ENT: normal ENT inspection Neck: normal inspection, full range of motion, supple Respiratory: normal inspection, chest non-tender, lungs clear, normal breath sounds, no rhonchi, no respiratory distress, no retraction, no accessory muscle use Cardiovascular #1: normal inspection, normal peripheral pulses, regular rate, rhythm, no edema, no gallop, no JVD, no murmur, no rub Cardiovascular #2: 2+ radial (R), 2+ radial (L) Gastrointestinal: normal inspection, normal bowel sounds, non tender, no mass, no guarding, no pulsatile mass, no rebound, other - gravid Rectal: deferred Genitourinary: no CVA tenderness, deferred Musculoskeletal: normal inspection, back normal Neurologic: normal inspection, alert, oriented x3 Psychiatric: normal inspection, judgement/insight normal, memory normal Skin: normal inspection, normal color, no rash, warm/dry Lymphatic: normal inspection, no adenopathy Medical Decision Making PA Attestation all orders, dx tx plans were reviewed and discussed with my supervising physician Dr Doe Reaction to Intervention: Improved Diagnostic Impression: Primary Impression: Threatened Additional Impression: Vaginal bleeding ER Course 37 y.o. F , A1, 11 wks , here c/o continuous spotting since this morning and mild abd pain upon palpation. denies nausea/vomiting, dysuira, frequency. denies hematuira, clotting. has a hx of one spontaneous 9 yrs ago. pt stopped taking prednisone for her lupus prior to pregnnacy and currently on Aspirin dialy. denies fever/chills, syncope, vision changes, palpitation, sob, CP. Ddx considered but are not limited to threatnend , spontaneous , UTI Vital signs: are WNL, pt. is afebrile H&PE are most consistent with [ ] ORDERS: Beta HCG quant, OB US ED INTERVENTIONS: None required at this time. beta HCG quant: RH test positive Lab Results Impression beta HCG quant , RH pos CT/MRI/US Diagnostic Results CT/MRI/US Diagnostic Results : Imaging Test Ordered: OB US first trimaster Impression IMPRESSION: 1. A chorionic sac with yolk sac is seen within the uterus. The estimated gestational age of 6 weeks and 1 day. The chorionic sac measures approximately 22 mm and no embryonic pole is identified. This is suspicious for a failed intrauterine . Follow-up ultrasound in 7-10 days is recommended to assess for viability. 2. A small hypoechoic area is seen adjacent to the chorionic sac. A small subchorionic hemorrhage cannot be excluded. Last Vital Signs Date Time Temp Pulse Resp B/P (MAP) Pulse Ox O2 Delivery O2 Flow Rate FiO2 07/23/17 14:52 98.3 73 16 120/77 97 Room Air 98.2 Status: unchanged Disposition: HOME, SELF-CARE Condition: Stable Patient Instructions: Labor Information, Threatened Miscarriage Additional Instructions: follow up with OB in 2 days for repeat Beta HCG. if dizziness, excess bleeding, nausea vomiting return to ED Carlos Baca Jul 23, 2017 15:29
--- NOTE | 2017-07-23 17:38 | Diagnostic Imaging Report ---
EXAM: US First Trimester, Transabdominal US , Transvaginal CLINICAL HISTORY: ABD PAIN TECHNIQUE: Real-time transabdominal and transvaginal obstetrical ultrasound of the maternal pelvis and a first trimester with image documentation. Transvaginal imaging was used for better evaluation of the fetus and adnexa. COMPARISON: No relevant prior studies available. FINDINGS: Gestation: A chorionic sac with yolk sac is seen within the uterus. The estimated gestational age of 6 weeks and 1 day. The chorionic sac measures approximately 22 mm and no embryonic pole is identified. This is suspicious for a failed intrauterine . Follow-up ultrasound in 7-10 days is recommended to assess for viability. Placenta/amniotic fluid: A small hypoechoic area is seen adjacent to the chorionic sac. A small subchorionic hemorrhage cannot be excluded. Uterus/cervix: The uterus measures 8.7 x 5.8 x 8.6 cm. No myometrial mass. Ovaries: The right ovary is unremarkable and measures 2.9 x 2.6 x 1.7 cm. The right ovary demonstrates vascular flow. The left ovary is unremarkable and measures 3.3 x 2.9 x 1.8 cm. The left ovary demonstrates vascular flow. No mass. Free fluid: No evidence for free fluid or adnexal mass. IMPRESSION: 1. A chorionic sac with yolk sac is seen within the uterus. The estimated gestational age of 6 weeks and 1 day. The chorionic sac measures approximately 22 mm and no embryonic pole is identified. This is suspicious for a failed intrauterine . Follow-up ultrasound in 7-10 days is recommended to assess for viability. 2. A small hypoechoic area is seen adjacent to the chorionic sac. A small subchorionic hemorrhage cannot be excluded. [employer] 07/23/17 17:45 Verify Receipt Verified receipt with Nader FREY on 07/23 17: 45 (-07:00)
[2017-07-23] MEDS ORDERED: RHO (D) Immune Globulin 1500 Units IM ONE (18:00)
[2017-07-23 19:22] VITALS: BP 120/77
== END 2017-07-23 19:22 | disposition home or self-care (01) ==
LOC: EMR 15:10
DX: O20.0 Threatened abortion (principal); Z3A.11 11 weeks gestation of pregnancy; O26.891 Other specified pregnancy related conditions, first trimester; J45.909 Unspecified asthma, uncomplicated
CPT/HCPCS: 36415; 76801; 76830; 84702; 86900; 86901; 99284

== ENCOUNTER 2017-08-25 23:00 | Emergency (ER) | payer OTHER ==
[~2017-08-25] VITALS: Ht 152.4 cm; Wt 78.5 kg
[2017-08-25] MEDS ORDERED: Ipratropium 0.02% Inh Soln 2.5ml UD HHN ONE (23:30)
[2017-08-25] MEDS ORDERED: Albuterol ud Inhalation HHN ONE (23:30)
[2017-08-25] MEDS ORDERED: ALBUTEROL2.5 MG/3 M HHN (23:52)
[2017-08-25] MEDS ORDERED: PREDNISONE20 MG ORAL (23:52)
[2017-08-25] MEDS ORDERED: ALBUTEROL SULF8.5 GM INH (23:52)
--- NOTE | 2017-08-25 23:53 | Emergency Room Report ---
History of Present Illness General Chief Complaint: Dyspnea/Respdistress Source: Patient Present Illness HPI Is a 29-year-old female with a history of asthma. She is out of her medication for 2 weeks now. She went to her doctor and had refilled but it never went to the pharmacy. She developed shortness of breath starting a few days ago. Getting worse per she has coughing congestion. Wheezing. Worse with exertion. Better with rest. Denies any other complaint. Last time she was on steroid was over a year ago. Allergies: Coded Allergies: ASPIRIN (Verified Allergy, Unknown, 05/21/09) MORPHINE (Verified Allergy, Unknown, 06/26/17) PENICILLINS (Verified Allergy, Unknown, 05/21/09) Patient History Past Medical History: see triage record, old chart reviewed, asthma Past Surgical History: other Pertinent Family History: none Social History: Denies: smoking Last Menstrual Period: august Now: No Immunizations: other Reviewed Nursing Documentation: PMH: Agreed; PSxH: Agreed Nursing Documentation-PMH Hx Asthma: Yes Review of Systems Eye: Denies: eye pain, blurred vision ENT: Denies: ear pain, nose congestion, throat swelling Respiratory: Reports: cough, shortness of breath, wheezing Cardiovascular: Denies: chest pain, palpitations Gastrointestinal: Denies: abdominal pain, diarrhea, nausea, vomiting Musculoskeletal: Denies: back pain, joint pain Skin: Denies: rash Neurological: Denies: headache, numbness Endocrine: Denies: increased thirst, increased urine Hematologic/Lymphatic: Denies: easy bruising All Other Systems: negative except mentioned in HPI Physical Exam Vital Signs Date Time Temp Pulse Resp B/P (MAP) Pulse Ox O2 Delivery O2 Flow Rate FiO2 08/25/17 23:10 98.3 72 18 145/82 98 Room Air 98.2 08/25/17 23:37 21 vitals unremarkable Sp02 EP Interpretation: reviewed, normal General Appearance: well appearing, no apparent distress, alert Head: normocephalic, atraumatic Eyes: bilateral eye PERRL, bilateral eye EOMI ENT: hearing grossly normal, normal pharynx Neck: full range of motion, supple, no meningismus Respiratory: chest non-tender, normal breath sounds, decreased breath sounds, accessory muscle use, wheezing Cardiovascular #1: regular rate, rhythm, no murmur Gastrointestinal: normal bowel sounds, non tender, no mass, no organomegaly, no bruit, non-distended Musculoskeletal: back normal, gait/station normal, normal range of motion Psychiatric: mood/affect normal Skin: warm/dry Medical Decision Making Diagnostic Impression: Primary Impression: Asthma exacerbation Qualified Codes: J45.21 - Mild intermittent asthma with (acute) exacerbation ER Course Patient with asthma exacerbation. Better with albuterol treatment. No evidence of ACS, PE, dissection to name a few. Last Vital Signs Date Time Temp Pulse Resp B/P (MAP) Pulse Ox O2 Delivery O2 Flow Rate FiO2 08/25/17 23:38 63 18 Room Air 21 08/25/17 23:37 98 08/25/17 23:10 98.3 145/82 98.2 Status: improved Disposition: HOME, SELF-CARE Condition: Stable Scripts Prednisone* (PREDNISONE*) 20 Mg Tablet 60 MG ORAL DAILY, #12 TAB Prov: MAYRA MATIAS M.D. 08/25/17 Albuterol Sulfate* (ALBUTEROL SULFATE HHN*) 2.5 Mg/3 Ml Vial.neb 2.5 MG HHN Q4H PRN for Shortness of Breath, #25 VIAL Prov: MAYRA MATIAS M.D. 08/25/17 Albuterol Sulfate* (ALBUTEROL SULFATE MDI*) 8.5 Gm Hfa.aer.ad 2 PUFF INH Q6H, #1 EA 0 Refills Prov: MAYRA MATIAS M.D. 08/25/17 Additional Instructions: follow-up with your doctor in 7 days. Return if worse MAYRA MATIAS M.D. Aug 25, 2017 23:53
[2017-08-25 23:56] VITALS: BP 128/89
== END 2017-08-25 23:56 | disposition home or self-care (01) ==
LOC: EMR 23:30
DX: J45.901 Unspecified asthma with (acute) exacerbation (principal); Z88.0 Allergy status to penicillin; Z88.5 Allergy status to narcotic agent; Z88.6 Allergy status to analgesic agent
CPT/HCPCS: 94640; 94664; 99284; J7512